=== PATIENT | male | born 1955 | race Caucasian/White ===

== ENCOUNTER 2020-01-01 20:06 | Emergency (ER) | payer OTHER ==
[2020-01-01 20:50] LABS: #Lymphocytes 0.9 thou/uL (1.20-3.40); #Monocytes 0.6 thou/uL (0.11-0.59); #Neutrophils 4.6 thou/uL (1.40-6.50); %Basophils 0.1 % (0.0-1.0); %Eosinophils 0.2 % (0.0-10.0); %Lymphocytes 14.1 % (21.0-51.0); %Monocytes 10.3 % (0.0-10.0); %Neutrophils 75.2 % (42.0-75.0); Hemoglobin 14.1 g/dL (14.0-18.0); Mean Corpuscular HGB CONC 35.2 g/dL (32.0-36.0); Mean Corpuscular Hemoglobin 32.8 pg (27.0-31.0); Mean Corpuscular Volume 93.1 fL (78.0-98.0); Mean Platelet Volume 7.7 fL (7.4-10.4); Platelet Count 145 thou/uL (130-400); RBC Distribution Width 13.4 % (11.5-14.5); Red Blood Cell (RBC) Count 4.29 mill/uL (4.70-6.10); White Blood Cell (WBC) Count 6.1 thou/uL (4.8-10.8)
[2020-01-01 21:10] LABS: ALT (SGPT) 11 U/L (8-55); AST (SGOT) 16 U/L (5-34); Albumin 4.3 g/dL (3.4-4.8); Alkaline Phosphatase 125 U/L (40-110); Anion Gap 15 mmol/L (10-20); BUN (Urea Nitrogen) 14 mg/dL (8.4-25.7); Bilirubin, Total 1.1 mg/dL (0.2-1.2); CK (CPK) 93 U/L (30-200); Calc. Creatinine Clearance 0 mL/min (70-130); Calcium 8.9 mg/dL (7.8-10.44); Carbon Dioxide 20 mmol/L (23-31); Chloride 108 mmol/L (98-107); Estimated GFR-MDRD 74; Globulin 2.9 g/dL (2.4-3.5); Glucose 102 mg/dL (80-115); Protein, Total 7.2 g/dL (5.8-8.1); Sodium 139 mmol/L (136-145)
[2020-01-01] MEDS ORDERED: Ondansetron ODT 4 MG TAB ONE (21:10)
[2020-01-01] MEDS ORDERED: Acetaminophen 500 MG TAB ONE (21:10)
--- NOTE | 2020-01-01 21:25 | RAD ---
CHEST ONE VIEW: 01/01/20 HISTORY: Dizziness and nausea. COMPARISON: None. FINDINGS: There are abnormal left basilar air space opacity. Right lower lobe atelectasis. No pneumothorax. No significant effusion. Multiple midline sternotomy wires. IMPRESSION: Findings concerning for left lower lobe pneumonia. POS: HOME
[2020-01-01] MEDS ORDERED: cefTRIAXone\\ROCEPHIN 1 GM VIAL ONE (22:10)
[2020-01-01 22:41] LABS: Bacteria/HPF None Seen HPF (None Seen); Bilirubin Negative (Negative); Blood, Urine Trace (Negative); Clarity Clear (Clear); Glucose, Urine (Dipstick) Normal (Negative); Leukocyte Negative Leu/uL (Negative); Nitrite Negative (Negative); Protein, Urine (Dipstick) 50 mg/dL (Neg-Trace); RBC/HPF 0-3 HPF (0-3); Squamous Epithelial None Seen HPF (0-3); Urobilinogen Normal mg/dL (Less than 2); WBC/HPF 0-3 HPF (0-3)
[2020-01-03 17:07] LABS: SARS-CoV-2 N Gene Positive; SARS-CoV-2 S Gene Positive; SARS-CoV-2 orf1ab Positive
[2020-01-03 17:08] LABS: SARS-CoV-2 MS2 Positive
== END 2020-01-01 23:51 ==
LOC: ERS 20:06
DX: U07.1 COVID-19 (principal); J12.89 Other viral pneumonia; D64.9 Anemia, unspecified; M16.10 Unilateral primary osteoarthritis, unspecified hip; I48.91 Unspecified atrial fibrillation; F17.210 Nicotine dependence, cigarettes, uncomplicated; F32.9 Major depressive disorder, single episode, unspecified; I10 Essential (primary) hypertension; I25.10 Atherosclerotic heart disease of native coronary artery without angina pectoris; Z79.82 Long term (current) use of aspirin; Z79.899 Other long term (current) drug therapy
CPT/HCPCS: 71045; 80053; 81003; 81015; 82550; 84484; 85025; 87635; 93005; 94760; 96361; 96374; J0696; Q0162; U0003

== ENCOUNTER 2024-07-04 22:46 | Inpatient (IN) | payer OTHER ==
[2024-07-04 23:19] LABS: #Basophils 0.04 10x3/uL (0.0-0.2); %Basophils 0.7 % (0.0-1.0); %Eosinophils 2.3 % (0.0-10.0); %Lymphocytes 21.8 % (21.0-51.0); %Monocytes 10.7 % (0.0-10.0); %Neutrophils 64.1 % (42.0-75.0); Hematocrit 36.4 % (42.0-52.0); Hemoglobin 12.4 g/dL (14.0-18.0); Mean Corpuscular HGB CONC 34.1 g/dL (32.0-36.0); Mean Corpuscular Hemoglobin 31.3 pg (27.0-31.0); Mean Corpuscular Volume 91.9 fL (78.0-98.0); Mean Platelet Volume 9.8 fL (7.4-10.4); Platelet Count 167 10x3/uL (130-400); Red Blood Cell (RBC) Count 3.96 mill/uL (4.70-6.10)
[2024-07-04 23:20] LABS: Actual Bicarbonate (HCO3v) 21.7 mEq/L (22-28); Calcium, Ionized (venous) 1.14 mmol/L (1.16-1.32); Chloride (VBG) 104 mmol/L (98-106); Hematocrit-VBG 39 % (42.0-52.0); Hemoglobin (Hb) 13.1 g/dL (12.6-17.4); Potassium (VBG) 3.91 mmol/L (3.70-5.30); Sodium 139 mmol/L (133-146); pH (venous) 7.422 (7.32-7.43)
[2024-07-04] MEDS ORDERED: Furosemide 40 MG (4 mL) VIAL ONE (23:32)
[2024-07-04] MEDS ORDERED: Nitroglycerin 2% Ointment 1 INCH/1 GM Packet ONE (23:32)
[2024-07-04 23:34] LABS: ALT (SGPT) 16 U/L (8-55); AST (SGOT) 23 U/L (5-34); Albumin 3.5 g/dL (3.4-4.8); Alkaline Phosphatase 87 U/L (40-110); Anion Gap 14 mmol/L (10-20); BUN (Urea Nitrogen) 11 mg/dL (8.4-25.7); Bilirubin, Total 0.7 mg/dL (0.2-1.2); Calc. Creatinine Clearance 0 mL/min (70-130); Calcium 8.6 mg/dL (7.8-10.44); Carbon Dioxide 21 mmol/L (23-31); Chloride 108 mmol/L (98-107); Estimated GFR 80; Globulin 2.4 g/dL (2.4-3.5); Glucose 102 mg/dL (80-115); Magnesium 2.1 mg/dL (1.6-2.6); Potassium 3.9 mmol/L (3.5-5.1); Protein, Total 5.9 g/dL (5.8-8.1); Sodium 139 mmol/L (136-145)
[2024-07-04 23:40] LABS: Troponin I 0.068 ng/mL (< 0.028)
[2024-07-05] MEDS ORDERED: hydrALAZINE 20 MG/ML VIAL SLOW IVP PRN (01:46)
[2024-07-05] MEDS ORDERED: Ondansetron PF 4 MG/2 ML Vial IVP PRN (01:47)
[2024-07-05] MEDS ORDERED: traMADol HCl 50 MG TAB PO PRN (01:47)
[2024-07-05] MEDS ORDERED: Acetaminophen 325 MG TAB PO PRN (01:47)
[2024-07-05] MEDS ORDERED: Ondansetron ODT 4 MG TAB PO PRN (01:47)
[2024-07-05] MEDS ORDERED: Aspirin Chewable 81 MG TAB ONE (01:57)
[2024-07-05 04:01] LABS: #Basophils 0.05 10x3/uL (0.0-0.2); %Basophils 0.9 % (0.0-1.0); %Eosinophils 1.7 % (0.0-10.0); %Lymphocytes 16.5 % (21.0-51.0); %Monocytes 10.7 % (0.0-10.0); %Neutrophils 69.7 % (42.0-75.0); Hematocrit 38.5 % (42.0-52.0); Hemoglobin 12.7 g/dL (14.0-18.0); Mean Corpuscular Hemoglobin 31.2 pg (27.0-31.0); Mean Corpuscular Volume 94.6 fL (78.0-98.0); Mean Platelet Volume 10.2 fL (7.4-10.4); Platelet Count 188 10x3/uL (130-400); RBC Distribution Width 15.4 % (11.5-14.5); Red Blood Cell (RBC) Count 4.07 mill/uL (4.70-6.10)
[2024-07-05 04:14] LABS: Sodium 138 mmol/L (136-145)
[2024-07-05 04:15] LABS: ALT (SGPT) 18 U/L (8-55); AST (SGOT) 26 U/L (5-34); Albumin 3.6 g/dL (3.4-4.8); Alkaline Phosphatase 87 U/L (40-110); Anion Gap 15 mmol/L (10-20); BUN (Urea Nitrogen) 11 mg/dL (8.4-25.7); Bilirubin, Total 0.9 mg/dL (0.2-1.2); Calc. Creatinine Clearance 0 mL/min (70-130); Calcium 8.8 mg/dL (7.8-10.44); Carbon Dioxide 21 mmol/L (23-31); Chloride 106 mmol/L (98-107); Estimated GFR 79; Globulin 2.9 g/dL (2.4-3.5); Glucose 98 mg/dL (80-115); Potassium 3.9 mmol/L (3.5-5.1); Protein, Total 6.5 g/dL (5.8-8.1)
[2024-07-05 04:18] VITALS: BMI 27.3
[2024-07-05 04:19] LABS: Troponin I 0.063 ng/mL (< 0.028)
[2024-07-05] MEDS: Doxycycline 100 MG in Sodium Chloride 0.9% 100 ML IVPB SCH ×2 (04:43→05:10)
[2024-07-05] MEDS: Enoxaparin 100 MG (1 mL) SYRINGE SC SCH ×2 (04:43→05:09)
[2024-07-05] MEDS: Furosemide 40 MG (4 mL) VIAL SLOW IVP SCH (05:08)
[2024-07-05 06:09] LABS: Influenza A by NAA Not Detected (NotDetected); Influenza B by NAA Not Detected (NotDetected); RSV by NAA Not Detected (NotDetected); SARS-CoV-2 NAA Rapid Test Not Detected (NotDetected)
[2024-07-05 06:30] LABS: Troponin I 0.054 ng/mL (< 0.028)
[2024-07-05 08:29] LABS: Free T4 (Free Thyroxine) 2.79 ng/dL (0.70-1.48)
[2024-07-05] MEDS: Potassium Chloride 10 MEQ TAB PO SCH (08:34)
[2024-07-05] MEDS: Amiodarone 200 MG TAB PO SCH (08:34)
[2024-07-05] MEDS: Losartan 25 MG TAB PO SCH (08:34)
[2024-07-05] MEDS: Venlafaxine 75 MG TAB PO SCH (08:35)
[2024-07-05] MEDS: Pantoprazole DR 40 MG TAB PO SCH (08:35)
[2024-07-05] MEDS: Aspirin 81 mg Enteric Coated Tablet PO SCH (08:35)
[2024-07-05] MEDS: Pantoprazole 40 MG VIAL IVP SCH (09:10)
[2024-07-05] MEDS ORDERED: Amiodarone 450 MG in Dextrose 5% in Water 250 ML IVPB SCH (14:30)
[2024-07-05 14:45] LABS: Amphetamine Not Detected (NotDetected); Barbiturates Screen Not Detected (NotDetected); Benzodiazepine Screen Not Detected (NotDetected); Cocaine Metabolite Screen Not Detected (NotDetected); Methadone Not Detected (NotDetected); Methamphetamine Not Detected (NotDetected); Opiate Screen Not Detected (NotDetected); Oxycodone Screen Not Detected (NotDetected); Phencyclidine (PCP) Not Detected (NotDetected); THC/Cannabinoid Screen Not Detected (NotDetected); Tricyclic Screen Not Detected (NotDetected)
[2024-07-05] MEDS: Diltiazem HCl/D5W 125 MG in Premix 1 BAG IVPB SCH (15:40)
[2024-07-05] MEDS: Atorvastatin Calcium 40 MG TAB PO SCH (20:48)
[2024-07-05] MEDS: carBAMazepine 200 MG TAB PO SCH (20:48)
[2024-07-05] MEDS: risperiDONE 1 MG TAB PO SCH (20:48)
[2024-07-06 03:52] LABS: #Basophils 0.05 10x3/uL (0.0-0.2); %Basophils 0.8 % (0.0-1.0); %Eosinophils 2.8 % (0.0-10.0); %Lymphocytes 21.6 % (21.0-51.0); %Monocytes 11.3 % (0.0-10.0); %Neutrophils 63.2 % (42.0-75.0); Hematocrit 37.3 % (42.0-52.0); Hemoglobin 12.4 g/dL (14.0-18.0); Mean Corpuscular HGB CONC 33.2 g/dL (32.0-36.0); Mean Corpuscular Hemoglobin 30.9 pg (27.0-31.0); Platelet Count 193 10x3/uL (130-400); RBC Distribution Width 15.6 % (11.5-14.5); Red Blood Cell (RBC) Count 4.01 mill/uL (4.70-6.10)
[2024-07-06 04:21] LABS: Anion Gap 15 mmol/L (10-20); BUN (Urea Nitrogen) 17 mg/dL (8.4-25.7); Calc. Creatinine Clearance 79 mL/min (70-130); Calcium 8.7 mg/dL (7.8-10.44); Carbon Dioxide 23 mmol/L (23-31); Chloride 106 mmol/L (98-107); Estimated GFR 68; Glucose 100 mg/dL (80-115); Magnesium 2.1 mg/dL (1.6-2.6); Potassium 3.5 mmol/L (3.5-5.1); Sodium 140 mmol/L (136-145)
[2024-07-06] MEDS: Cyanocobalamin (Vitamin B-12) 1,000 MCG TAB PO SCH (08:07)
[2024-07-06] MEDS ORDERED: dilTIAZem 125 MG in Sodium Chloride 0.9% 100 ML IVPB SCH (10:30)
[2024-07-07 04:46] LABS: #Basophils 0.05 10x3/uL (0.0-0.2); %Basophils 0.7 % (0.0-1.0); %Lymphocytes 16.8 % (21.0-51.0); %Monocytes 11.8 % (0.0-10.0); %Neutrophils 67.3 % (42.0-75.0); Hematocrit 37.6 % (42.0-52.0); Hemoglobin 12.7 g/dL (14.0-18.0); Mean Corpuscular HGB CONC 33.8 g/dL (32.0-36.0); Mean Corpuscular Hemoglobin 31.3 pg (27.0-31.0); Mean Corpuscular Volume 92.6 fL (78.0-98.0); Mean Platelet Volume 10.1 fL (7.4-10.4); Platelet Count 190 10x3/uL (130-400); RBC Distribution Width 15.3 % (11.5-14.5); Red Blood Cell (RBC) Count 4.06 mill/uL (4.70-6.10)
[2024-07-07 05:00] LABS: Anion Gap 13 mmol/L (10-20); BUN (Urea Nitrogen) 21 mg/dL (8.4-25.7); Calc. Creatinine Clearance 80 mL/min (70-130); Calcium 9.1 mg/dL (7.8-10.44); Carbon Dioxide 26 mmol/L (23-31); Chloride 105 mmol/L (98-107); Estimated GFR 72; Glucose 115 mg/dL (80-115); Magnesium 2.1 mg/dL (1.6-2.6); Potassium 3.8 mmol/L (3.5-5.1); Sodium 140 mmol/L (136-145)
[2024-07-07] MEDS ORDERED: Furosemide 40 MG (4 mL) VIAL ONE (06:06)
[2024-07-07 14:53] LABS: INR-International Normal Ratio 1.1; Prothrombin Time 14.5 sec (12.0-14.7)
[2024-07-07] MEDS: Diltiazem HCl/D5W 125 MG in Premix 1 BAG IVPB SCH (18:21)
[2024-07-07] MEDS: Enoxaparin 100 MG (1 mL) SYRINGE SC SCH (18:22)
[2024-07-07] MEDS: Warfarin Sodium 2.5 MG TAB PO SCH (18:24)
[2024-07-07] MEDS ORDERED: Apixaban 5 MG TAB PO SCH (21:00)
[2024-07-08] MEDS ORDERED: Enoxaparin 100 MG (1 mL) SYRINGE ONE ×2 (07:11→18:00)
[2024-07-08] MEDS ORDERED: Furosemide 40 MG (4 mL) VIAL ONE ×2 (07:11→14:31)
[2024-07-08] MEDS ORDERED: PROPOFOL 200 MG/20 ML VIAL ONE (10:09)
[2024-07-08] MEDS ORDERED: PHENYLEPHRINE-NS 100 MCG/ML 10 ML SYRINGE ONE (10:09)
[2024-07-08] MEDS ORDERED: Potassium Chloride 10 MEQ TAB ONE (12:11)
[2024-07-08] MEDS ORDERED: Cyanocobalamin (Vitamin B-12) 1,000 MCG TAB ONE (12:11)
[2024-07-08] MEDS ORDERED: Aspirin 81 mg Enteric Coated Tablet ONE (12:11)
[2024-07-08] MEDS ORDERED: Pantoprazole DR 40 MG TAB ONE (12:11)
[2024-07-08] MEDS ORDERED: Venlafaxine 75 MG TAB ONE (12:11)
[2024-07-08] MEDS ORDERED: Warfarin Sodium 2.5 MG TAB ONE (18:28)
[2024-07-08] MEDS ORDERED: dilTIAZem 30 MG TAB ONE ×2 (20:31→21:50)
[2024-07-08] MEDS ORDERED: Sacubitril 24MG/Valsartan 26 MG TAB ONE ×2 (20:35→21:50)
[2024-07-08] MEDS ORDERED: carBAMazepine 200 MG TAB ONE (21:50)
[2024-07-08] MEDS ORDERED: risperiDONE 1 MG TAB ONE (21:50)
[2024-07-08] MEDS ORDERED: Atorvastatin Calcium 40 MG TAB ONE (21:50)
[2024-07-09] MEDS ORDERED: Enoxaparin 100 MG (1 mL) SYRINGE ONE ×2 (06:06→17:52)
[2024-07-09] MEDS ORDERED: Venlafaxine 75 MG TAB ONE (09:37)
[2024-07-09] MEDS ORDERED: dilTIAZem 30 MG TAB ONE ×2 (09:37→23:59)
[2024-07-09] MEDS ORDERED: Cyanocobalamin (Vitamin B-12) 1,000 MCG TAB ONE (09:37)
[2024-07-09] MEDS ORDERED: Aspirin 81 mg Enteric Coated Tablet ONE (09:37)
[2024-07-09] MEDS ORDERED: Pantoprazole DR 40 MG TAB ONE (09:37)
[2024-07-09] MEDS ORDERED: Potassium Chloride 10 MEQ TAB ONE (09:37)
[2024-07-09] MEDS ORDERED: Pantoprazole 40 MG VIAL ONE (09:37)
[2024-07-09] MEDS ORDERED: Sacubitril 24MG/Valsartan 26 MG TAB ONE ×2 (12:11→23:59)
[2024-07-09] MEDS ORDERED: Furosemide 40 MG (4 mL) VIAL ONE (14:42)
[2024-07-09] MEDS ORDERED: Atorvastatin Calcium 40 MG TAB ONE (23:59)
[2024-07-09] MEDS ORDERED: carBAMazepine 200 MG TAB ONE (23:59)
[2024-07-09] MEDS ORDERED: RisperDAL M 1 MG TAB ONE (23:59)
[2024-07-10 04:53] LABS: #Basophils 0.06 10x3/uL (0.0-0.2); %Basophils 0.9 % (0.0-1.0); %Eosinophils 1.8 % (0.0-10.0); %Monocytes 12.7 % (0.0-10.0); %Neutrophils 64.3 % (42.0-75.0); Hematocrit 38.3 % (42.0-52.0); Mean Corpuscular HGB CONC 33.9 g/dL (32.0-36.0); Mean Corpuscular Hemoglobin 31.3 pg (27.0-31.0); Mean Corpuscular Volume 92.1 fL (78.0-98.0); Mean Platelet Volume 10.7 fL (7.4-10.4); Platelet Count 147 10x3/uL (130-400); RBC Distribution Width 15.2 % (11.5-14.5); Red Blood Cell (RBC) Count 4.16 mill/uL (4.70-6.10)
[2024-07-10 05:07] LABS: Anion Gap 16 mmol/L (10-20); BUN (Urea Nitrogen) 19 mg/dL (8.4-25.7); Calc. Creatinine Clearance 91 mL/min (70-130); Calcium 9.3 mg/dL (7.8-10.44); Carbon Dioxide 21 mmol/L (23-31); Chloride 105 mmol/L (98-107); Estimated GFR 86; Glucose 101 mg/dL (80-115); Potassium 3.6 mmol/L (3.5-5.1); Sodium 138 mmol/L (136-145)
[2024-07-10] MEDS ORDERED: Enoxaparin 100 MG (1 mL) SYRINGE ONE (06:25)
[2024-07-10] MEDS ORDERED: Furosemide 40 MG (4 mL) VIAL ONE (06:25)
[2024-07-10 07:30] LABS: INR-International Normal Ratio 1.3; Prothrombin Time 16.6 sec (12.0-14.7)
[2024-07-10] MEDS ORDERED: Apixaban 5 MG TAB PO SCH (09:00)
[2024-07-10] MEDS: Losartan 25 MG TAB ONE (11:32)
[2024-07-10] MEDS: Dapagliflozin Propanediol 10 MG TAB PO SCH (11:32)
[2024-07-10] MEDS: Metoprolol Tartrate 25 MG TAB PO SCH (15:16)
[2024-07-10] MEDS: Enoxaparin 80 MG (0.8 mL) SYRINGE SC SCH (16:58)
[2024-07-10] MEDS: Warfarin Sodium 5 MG TAB PO SCH (16:58)
[2024-07-11 04:34] LABS: #Basophils 0.07 10x3/uL (0.0-0.2); %Basophils 1.2 % (0.0-1.0); %Eosinophils 1.3 % (0.0-10.0); %Lymphocytes 25.9 % (21.0-51.0); %Monocytes 10.4 % (0.0-10.0); %Neutrophils 60.9 % (42.0-75.0); Mean Corpuscular HGB CONC 34.2 g/dL (32.0-36.0); Mean Corpuscular Hemoglobin 30.8 pg (27.0-31.0); Mean Platelet Volume 10.7 fL (7.4-10.4); Platelet Count 161 10x3/uL (130-400); RBC Distribution Width 15.1 % (11.5-14.5); Red Blood Cell (RBC) Count 4.22 mill/uL (4.70-6.10)
[2024-07-11 04:49] LABS: INR-International Normal Ratio 1.8; Prothrombin Time 20.6 sec (12.0-14.7)
[2024-07-11 04:56] LABS: Anion Gap 15 mmol/L (10-20); BUN (Urea Nitrogen) 25 mg/dL (8.4-25.7); Calc. Creatinine Clearance 88 mL/min (70-130); Calcium 9.4 mg/dL (7.8-10.44); Carbon Dioxide 25 mmol/L (23-31); Chloride 104 mmol/L (98-107); Estimated GFR 88; Glucose 99 mg/dL (80-115); Magnesium 2.1 mg/dL (1.6-2.6); Potassium 3.3 mmol/L (3.5-5.1); Sodium 141 mmol/L (136-145)
[2024-07-11] MEDS: Furosemide 20 MG TAB PO SCH (11:03)
[2024-07-11] MEDS: Potassium Chloride 20 MEQ TAB PO SCH (11:04)
[2024-07-11] MEDS: Lisinopril 2.5 MG TAB PO SCH (11:08)
[2024-07-11] MEDS: Warfarin Sodium 3.75 MG HALF.TAB PO SCH (16:53)
[2024-07-12 05:18] LABS: #Basophils 0.06 10x3/uL (0.0-0.2); %Lymphocytes 19.7 % (21.0-51.0); %Monocytes 9.9 % (0.0-10.0); %Neutrophils 68.1 % (42.0-75.0); Hematocrit 37.1 % (42.0-52.0); Hemoglobin 12.7 g/dL (14.0-18.0); Mean Corpuscular HGB CONC 34.2 g/dL (32.0-36.0); Mean Corpuscular Hemoglobin 30.8 pg (27.0-31.0); Mean Platelet Volume 11.1 fL (7.4-10.4); Platelet Count 170 10x3/uL (130-400); RBC Distribution Width 14.9 % (11.5-14.5); Red Blood Cell (RBC) Count 4.12 mill/uL (4.70-6.10)
[2024-07-12 05:27] LABS: INR-International Normal Ratio 2.7; Prothrombin Time 28.4 sec (12.0-14.7)
[2024-07-12 05:42] LABS: Anion Gap 15 mmol/L (10-20); BUN (Urea Nitrogen) 26 mg/dL (8.4-25.7); Calc. Creatinine Clearance 87 mL/min (70-130); Calcium 9.2 mg/dL (7.8-10.44); Carbon Dioxide 22 mmol/L (23-31); Chloride 106 mmol/L (98-107); Estimated GFR 87; Glucose 100 mg/dL (80-115); Magnesium 2.1 mg/dL (1.6-2.6); Potassium 3.8 mmol/L (3.5-5.1); Sodium 139 mmol/L (136-145)
[2024-07-12] MEDS: Warfarin Sodium 2.5 MG TAB PO SCH (17:13)
[2024-07-12] MEDS: Enoxaparin 80 MG (0.8 mL) SYRINGE SC SCH (21:37)
[2024-07-12] MEDS: dilTIAZem 30 MG TAB ONE (21:37)
[2024-07-13] MEDS: dilTIAZem 30 MG TAB ONE (06:21)
[2024-07-13 14:44] VITALS: BMI 24.3
[2024-07-13 15:28] LABS: Anion Gap 14 mmol/L (10-20); BUN (Urea Nitrogen) 23 mg/dL (8.4-25.7); Calc. Creatinine Clearance 79 mL/min (70-130); Carbon Dioxide 26 mmol/L (23-31); Chloride 102 mmol/L (98-107); Estimated GFR 78; Glucose 108 mg/dL (80-115); Potassium 3.4 mmol/L (3.5-5.1); Sodium 139 mmol/L (136-145)
[2024-07-14 04:34] LABS: INR-International Normal Ratio 2.4; Prothrombin Time 26.2 sec (12.0-14.7)
[2024-07-14] MEDS: dilTIAZem 30 MG TAB ONE ×2 (08:12)
[2024-07-14] MEDS: Sacubitril 24MG/Valsartan 26 MG TAB ONE ×2 (08:12→08:13)
[2024-07-14] MEDS: Warfarin Sodium 2.5 MG TAB PO SCH (17:23)
[2024-07-14 23:59] VITALS: BP 107/56; TEMP 98.3
== END 2024-07-15 01:28 | DRG 280 ==
LOC: EEVIPCON 22:46 → ERS 22:46 → INTOOBSV 07-05 00:24 → ERHOLD 07-05 00:24 → 2SE 07-05 03:43 → OBSVTOIN 07-06 10:42
PROVIDERS: ADMIT Internal Medicine; ATTEND Internal Medicine
PROC: 5A2204Z Restoration of Cardiac Rhythm, Single (ICD-10-PCS; principal; 2024-07-13)
PROC: B24BZZ4 Ultrasonography of Heart with Aorta, Transesophageal (ICD-10-PCS; 2024-07-13)
DX: I11.0 Hypertensive heart disease with heart failure (principal); I50.21 Acute systolic (congestive) heart failure; I21.A1 Myocardial infarction type 2; J96.01 Acute respiratory failure with hypoxia; F32.A Depression, unspecified; I77.819 Aortic ectasia, unspecified site; E78.5 Hyperlipidemia, unspecified; I48.0 Paroxysmal atrial fibrillation; I25.10 Atherosclerotic heart disease of native coronary artery without angina pectoris; E05.20 Thyrotoxicosis with toxic multinodular goiter without thyrotoxic crisis or storm; Z88.5 Allergy status to narcotic agent; Z87.891 Personal history of nicotine dependence; Z95.1 Presence of aortocoronary bypass graft; Z90.49 Acquired absence of other specified parts of digestive tract; Z95.5 Presence of coronary angioplasty implant and graft; I42.0 Dilated cardiomyopathy
CPT/HCPCS: 0241U; 36415; 71045; 71250; 76536; 80048; 80053; 80306; 82805; 83735; 83880; 84145; 84238; 84439; 84443; 84445; 84481; 84484; 85025; 85379; 85610; 92960; 93005; 93306; 93312; 93970; 94660; 94760; 96372; 96374; 96375; 96376; G0378; J1650; J1940; J2470; J2704

== ENCOUNTER 2024-07-16 19:53 | Inpatient (IN) | payer OTHER ==
[~2024-07-16 19:53] MED LIST: Iopamidol-370 76% 500 ML MDV (1 ML CHARGE) ONE
[2024-07-16] MEDS ORDERED: dilTIAZem 25 MG/5 ML VIAL ONE (20:05)
[2024-07-16 20:35] LABS: #Basophils 0.07 10x3/uL (0.0-0.2); %Basophils 0.7 % (0.0-1.0); %Eosinophils 0.5 % (0.0-10.0); %Lymphocytes 15.8 % (21.0-51.0); %Monocytes 11.7 % (0.0-10.0); %Neutrophils 70.9 % (42.0-75.0); Hematocrit 37.7 % (42.0-52.0); Hemoglobin 12.8 g/dL (14.0-18.0); Mean Corpuscular Hemoglobin 31.1 pg (27.0-31.0); Mean Corpuscular Volume 91.5 fL (78.0-98.0); Mean Platelet Volume 10.6 fL (7.4-10.4); Platelet Count 227 10x3/uL (130-400); RBC Distribution Width 14.8 % (11.5-14.5); Red Blood Cell (RBC) Count 4.12 mill/uL (4.70-6.10)
[2024-07-16] MEDS ORDERED: hydrOXYzine 25 MG TAB ONE (20:36)
[2024-07-16 20:48] LABS: INR-International Normal Ratio 1.6; PTT 31.6 sec (22.9-36.1); Prothrombin Time 18.8 sec (12.0-14.7)
[2024-07-16 20:51] LABS: ALT (SGPT) 69 U/L (8-55); AST (SGOT) 34 U/L (5-34); Albumin 3.8 g/dL (3.4-4.8); Alkaline Phosphatase 93 U/L (40-110); Anion Gap 18 mmol/L (10-20); BUN (Urea Nitrogen) 14 mg/dL (8.4-25.7); Bilirubin, Total 0.7 mg/dL (0.2-1.2); Calc. Creatinine Clearance 0 mL/min (70-130); Calcium 9.2 mg/dL (7.8-10.44); Carbon Dioxide 18 mmol/L (23-31); Chloride 110 mmol/L (98-107); Estimated GFR 89; Globulin 2.4 g/dL (2.4-3.5); Glucose 95 mg/dL (80-115); Potassium 3.7 mmol/L (3.5-5.1); Protein, Total 6.2 g/dL (5.8-8.1); Sodium 142 mmol/L (136-145)
[2024-07-16 20:58] LABS: Troponin I 0.024 ng/mL (< 0.028)
[2024-07-16] MEDS ORDERED: dilTIAZem 125 MG/25 ML SDV ONE (21:34)
[2024-07-17] MEDS: dilTIAZem 125 MG in Sodium Chloride 0.9% 100 ML IVPB SCH (01:00)
[2024-07-17] MEDS ORDERED: Furosemide 40 MG (4 mL) VIAL ONE (01:39)
[2024-07-17] MEDS ORDERED: Lorazepam 1 MG TAB ONE (01:39)
[2024-07-17] MEDS ORDERED: Metoprolol Tartrate 25 MG TAB ONE ×2 (01:39→11:10)
[2024-07-17] MEDS: Furosemide 40 MG (4 mL) VIAL SLOW IVP SCH (01:45)
[2024-07-17] MEDS: Metoprolol Tartrate 25 MG TAB PO SCH ×2 (01:45→11:14)
[2024-07-17] MEDS: Lorazepam 1 MG TAB PO SCH (01:45)
[2024-07-17 02:34] LABS: Magnesium 2.1 mg/dL (1.6-2.6)
[2024-07-17 03:54] LABS: Free T4 (Free Thyroxine) 2.47 ng/dL (0.70-1.48); Thyroid Stimulating Hormone Less than 0.0083 uIU/mL (0.35-4.94)
[2024-07-17] MEDS ORDERED: Enoxaparin 80 MG (0.8 mL) SYRINGE ONE (04:23)
[2024-07-17] MEDS: Enoxaparin 80 MG (0.8 mL) SYRINGE SC SCH ×2 (04:28→17:09)
[2024-07-17] MEDS ORDERED: Enoxaparin 40 MG (0.4 mL) SYRINGE SC SCH (09:00)
[2024-07-17] MEDS ORDERED: Aspirin 81 mg Enteric Coated Tablet ONE (11:10)
[2024-07-17] MEDS: Aspirin 81 mg Enteric Coated Tablet PO SCH (11:14)
[2024-07-17] MEDS: Dapagliflozin Propanediol 10 MG TAB PO SCH (14:03)
[2024-07-17 15:49] VITALS: BMI 24.1
[2024-07-17] MEDS: Warfarin Sodium 2.5 MG TAB PO SCH (17:08)
[2024-07-17] MEDS: Atorvastatin Calcium 40 MG TAB PO SCH (20:37)
[2024-07-17] MEDS: carBAMazepine 200 MG TAB PO SCH (20:38)
[2024-07-18] MEDS ORDERED: traMADol HCl 50 MG TAB PO PRN (07:50)
[2024-07-18] MEDS ORDERED: Acetaminophen 325 MG TAB PO PRN (07:50)
[2024-07-18 09:13] LABS: INR-International Normal Ratio 1.4; PTT 41.7 sec (22.9-36.1); Prothrombin Time 17.2 sec (12.0-14.7)
[2024-07-18] MEDS: Cyanocobalamin (Vitamin B-12) 1,000 MCG TAB PO SCH (09:23)
[2024-07-18] MEDS: Venlafaxine 75 MG TAB PO SCH (09:23)
[2024-07-18] MEDS: Potassium Chloride 10 MEQ TAB PO SCH (09:23)
[2024-07-18] MEDS: Lisinopril 2.5 MG TAB PO SCH (09:23)
[2024-07-18] MEDS: Furosemide 20 MG TAB PO SCH (09:23)
[2024-07-18] MEDS: Pantoprazole DR 40 MG TAB PO SCH (09:23)
[2024-07-18] MEDS: FLU (Fluad Triv) TS24-25 (65UP)/MF59C/PF 45 MCG/0.5 ML Syringe IM ONE (09:24)
[2024-07-18] MEDS: Methimazole 5 MG TAB PO SCH (11:25)
[2024-07-18] MEDS: Metoprolol Tartrate 25 MG TAB PO SCH (14:06)
[2024-07-18 15:01] VITALS: BP 111/68; TEMP 97.3
[2024-07-18] MEDS ORDERED: Methimazole 5 MG TAB PO SCH (21:00)
[2024-07-18] MEDS ORDERED: risperiDONE 1 MG TAB PO SCH (21:00)
== END 2024-07-18 16:44 | DRG 291 ==
LOC: ERS 19:53 → EEVIPCON 07-17 00:29 → ERHOLD 07-17 00:29 → 2NO 07-17 15:39
PROVIDERS: ADMIT Internal Medicine; ATTEND Internal Medicine
DX: I11.0 Hypertensive heart disease with heart failure (principal); I50.23 Acute on chronic systolic (congestive) heart failure; J96.01 Acute respiratory failure with hypoxia; I48.20 Chronic atrial fibrillation, unspecified; I25.10 Atherosclerotic heart disease of native coronary artery without angina pectoris; E05.90 Thyrotoxicosis, unspecified without thyrotoxic crisis or storm; Z88.8 Allergy status to other drugs, medicaments and biological substances; Z79.899 Other long term (current) drug therapy; Z95.1 Presence of aortocoronary bypass graft; Z79.82 Long term (current) use of aspirin; J44.9 Chronic obstructive pulmonary disease, unspecified; F32.A Depression, unspecified; Z87.891 Personal history of nicotine dependence; J43.9 Emphysema, unspecified
CPT/HCPCS: 36415; 36416; 71045; 71275; 80053; 83735; 83880; 84439; 84443; 84484; 85025; 85610; 85730; 87428; 93005; J1650; J1940; Q9967